=== PATIENT | male | born 1960 | race Caucasian/White ===

== ENCOUNTER 2016-09-01 12:15 | Emergency (ER) | payer OTHER ==
[~2016-09-01] VITALS: Ht 172.7 cm; Wt 78.0 kg
[2016-09-01] MEDS ORDERED: FAMOTIDINE 20 MG TABLET PO ONE (13:00)
[2016-09-01 14:19] VITALS: BP 130/74
== END 2016-09-01 14:20 | disposition home or self-care (01) ==
LOC: EMS 12:19
DX: T38.0X5A Adverse effect of glucocorticoids and synthetic analogues, initial encounter (principal); Y92.89 Other specified places as the place of occurrence of the external cause
CPT/HCPCS: 99283